=== PATIENT | male | born 1935 | race Caucasian/White ===

== ENCOUNTER → 2017-10-26 | Outpatient (CLI) | payer OTHER ==
[~2017-10-26] MED LIST: ASPI-496 PO; FURO20TA3 PO; GABA-826 PO; IBUP-1221 PO; LOVA40TA2 PO; METO25TA35 PO; OMEP-110 PO; PANT40TA3 PO; SUCR1TAB PO; TAMS-11 PO; WARF7.5T6 PO-COUM
== END | disposition home or self-care (01) ==
LOC: CVU 09:30
PROVIDERS: ATTEND Family Medicine
DX: I82.409 Acute embolism and thrombosis of unspecified deep veins of unspecified lower extremity (principal)
CPT/HCPCS: 93922

== ENCOUNTER 2018-04-12 13:28 | Emergency (ER) | payer OTHER ==
[~2018-04-12] VITALS: Ht 172.7 cm; Wt 75.0 kg
[~2018-04-12 13:28] MED LIST changes: +WARF7.5T46 PO-COUM; -WARF7.5T6 PO-COUM
[2018-04-12 13:29] VITALS: BP 147/88
[2018-04-12] MEDS ORDERED: METHOCARBAMOL 750 MG TABLET PO ONE (14:00)
[2018-04-12] MEDS ORDERED: KETOROLAC 30 MG/1 ML IM ONE (14:00)
[2018-04-12] MEDS ORDERED: KETOROLAC 30 MG/1 ML ONE (14:06)
[2018-04-12] MEDS ORDERED: METHOCARBAMOL 750 MG TABLET ONE (14:06)
== END 2018-04-12 16:28 | disposition home or self-care (01) ==
LOC: ED 16:15
DX: S39.012A Strain of muscle, fascia and tendon of lower back, initial encounter (principal); M51.36 Other intervertebral disc degeneration, lumbar region; M54.16 Radiculopathy, lumbar region; M54.32 Sciatica, left side; G62.9 Polyneuropathy, unspecified; E78.5 Hyperlipidemia, unspecified; Z87.891 Personal history of nicotine dependence; Z86.718 Personal history of other venous thrombosis and embolism; Z86.711 Personal history of pulmonary embolism; W01.0XXA Fall on same level from slipping, tripping and stumbling without subsequent striking against object, initial encounter; Y93.89 Activity, other specified; Y92.89 Other specified places as the place of occurrence of the external cause; Y99.8 Other external cause status
CPT/HCPCS: 72110; 73502; 96372; 99284; J1885

== ENCOUNTER 2018-04-15 15:45 | Emergency (ER) | payer OTHER ==
[~2018-04-15] VITALS: Ht 172.7 cm; Wt 75.2 kg
[2018-04-15 16:33] LABS: BASOPHILS # (AUTO) 0.02 x10^3/uL (0-0.1); BASOPHILS % (AUTO) 0 % (0-1); EOSINOPHILS # (AUTO) 0.06 x10^3/uL (0-0.4); EOSINOPHILS % (AUTO) 1 % (1-7); LYMPHOCYTES # (AUTO) 0.99 x10^3/uL (1-3.4); LYMPHOCYTES % (AUTO) 18 % (22-44); MD NO; MEAN CORPUSCULAR HEMOGLOBIN 27.8 pg (27.5-34.5); MEAN CORPUSCULAR HGB CONC 32.8 g/dL (33.2-36.2); MEAN CORPUSCULAR VOLUME 84.7 fL (81-97); MONOCYTES # (AUTO) 0.52 x10^3/uL (0.2-0.8); MONOCYTES % (AUTO) 10 % (2-9); NEUTROPHILS # (AUTO) 3.78 x10^3/uL (1.8-6.8); NEUTROPHILS % (AUTO) 71 % (42-75); PLATELET COUNT 199 x10^3/uL (130-400); RED BLOOD COUNT 5.03 x10^6/uL (4.38-5.82); RED CELL DISTRIBUTION WIDTH 15.1 % (9.4-14.8)
[2018-04-15 16:40] LABS: INTERNATIONAL NORMALIZED RATIO 2.31 (0.93-1.1); PROTHROMBIN TIME 23.4 Seconds (9.6-11.5)
[2018-04-15 16:46] LABS: ALBUMIN 3.7 g/dL (3.4-5.0); ANION GAP 5 mmol/L (5-15); CALCIUM 8.8 mg/dL (8.5-10.1); CHLORIDE 110 mmol/L (98-107)
[2018-04-15 16:49] LABS: ALANINE AMINOTRANSFERASE 25 U/L (12-78); ALKALINE PHOSPHATASE 44 U/L (45-117); BILIRUBIN,TOTAL 0.9 mg/dL (0.2-1.0); CREATININE 1.26 mg/dL (0.7-1.3); TOTAL PROTEIN 7.1 g/dL (6.4-8.2)
[2018-04-15 19:30] VITALS: BP 131/72
== END 2018-04-15 19:32 | disposition home or self-care (01) ==
LOC: ED 19:27
DX: S76.912A Strain of unspecified muscles, fascia and tendons at thigh level, left thigh, initial encounter (principal); X58.XXXA Exposure to other specified factors, initial encounter; Y93.89 Activity, other specified; Y92.89 Other specified places as the place of occurrence of the external cause; Y99.8 Other external cause status
CPT/HCPCS: 36415; 80053; 85025; 85610; 99285

== ENCOUNTER → 2018-08-17 | Outpatient (CLI) | payer OTHER | END | disposition home or self-care (01) | LOC: RAD 13:57 | PROVIDERS: ATTEND Pain Medicine Interventional Pain Medicine | DX: M47.896 Other spondylosis, lumbar region (principal); M99.13 Subluxation complex (vertebral) of lumbar region | CPT/HCPCS: 72110 ==

== ENCOUNTER 2020-01-06 06:54 | Emergency (ER) | payer MEDICARE, OTHER ==
[~2020-01-06] VITALS: Ht 172.7 cm; Wt 78.2 kg
--- NOTE | 2020-01-06 07:12 | NUR ---
PT BROUGHT BACK FROM TRIAGE WITH CHIEF COMPLAINT OF STOMACH BLOATIGN FOR ABOUT 3-4 WEEKS WITH INTERMITTENT NAUSEA AND DIARRHEA. PT DENIES CP, VOMITING, RECENT TRAUMA.
[2020-01-06 07:52] LABS: BASOPHILS # (AUTO) 0.01 x10^3/uL (0-0.1); BASOPHILS % (AUTO) 0 % (0-1); EOSINOPHILS # (AUTO) 0.08 x10^3/uL (0-0.4); EOSINOPHILS % (AUTO) 2 % (1-7); LYMPHOCYTES # (AUTO) 0.99 x10^3/uL (1-3.4); LYMPHOCYTES % (AUTO) 23 % (22-44); MD NO; MEAN CORPUSCULAR HGB CONC 32.2 g/dL (33.2-36.2); MEAN CORPUSCULAR VOLUME 83.8 fL (81-97); MEAN PLATELET VOLUME 7.8 fL (7.4-10.4); MONOCYTES # (AUTO) 0.52 x10^3/uL (0.2-0.8); MONOCYTES % (AUTO) 12 % (2-9); NEUTROPHILS # (AUTO) 2.72 x10^3/uL (1.8-6.8); NEUTROPHILS % (AUTO) 63 % (42-75); PLATELET COUNT 196 x10^3/uL (130-400); RED BLOOD COUNT 5.45 x10^6/uL (4.38-5.82); RED CELL DISTRIBUTION WIDTH 15.3 % (9.4-14.8)
[2020-01-06 08:04] LABS: ALBUMIN 3.6 g/dL (3.4-5.0); ANION GAP 6 mmol/L (5-15); CALCIUM 8.8 mg/dL (8.5-10.1); CHLORIDE 116 mmol/L (98-107)
[2020-01-06 08:07] LABS: ALANINE AMINOTRANSFERASE 26 U/L (12-78); ALKALINE PHOSPHATASE 54 U/L (45-117); BILIRUBIN,TOTAL 0.7 mg/dL (0.2-1.0); CREATININE 1.17 mg/dL (0.7-1.3)
[2020-01-06 08:31] VITALS: BP 106/55
--- NOTE | 2020-01-06 08:31 | NUR ---
PT TO IMAGING
--- NOTE | 2020-01-06 08:44 | NUR ---
report from jeana holloway.
[2020-01-06 09:12] LABS: MICROSCOPIC NOT IND
[2020-01-06 09:13] LABS: CULTURE INDICATED? NO
== END 2020-01-06 10:10 | disposition home or self-care (01) ==
LOC: ED 08:57
DX: R10.9 Unspecified abdominal pain (principal); R93.5 Abnormal findings on diagnostic imaging of other abdominal regions, including retroperitoneum; R11.0 Nausea; R19.7 Diarrhea, unspecified; I48.91 Unspecified atrial fibrillation; E78.5 Hyperlipidemia, unspecified; Z86.718 Personal history of other venous thrombosis and embolism; Z85.46 Personal history of malignant neoplasm of prostate
CPT/HCPCS: 36415; 74177; 80053; 81003; 83690; 85025; 99285

== ENCOUNTER → 2021-03-13 | Outpatient (CLI) | payer MEDICARE ==
[~2021-03-13] MED LIST changes: +OMNIPAQUE 350 MG/ML, 100ML BOTTLE ONE
== END | disposition home or self-care (01) ==
LOC: CFH 09:17
PROVIDERS: ATTEND Thoracic Surgery (Cardiothoracic Vascular Surgery)
DX: K42.9 Umbilical hernia without obstruction or gangrene (principal); K43.9 Ventral hernia without obstruction or gangrene; K43.2 Incisional hernia without obstruction or gangrene; D21.4 Benign neoplasm of connective and other soft tissue of abdomen
CPT/HCPCS: 74177; Q9967